=== PATIENT | female | born 2000 | race Asian ===

== ENCOUNTER 2020-12-27 16:42 | Emergency (ER) | payer BC, SELFPAY ==
[2020-12-27 17:39] VITALS: BP 104/76; PULSE 100; RESP 19; TEMP 37.1; O2SAT 97; BMI 14.1
[2020-12-27 17:42] VITALS: BP 104/76; PULSE 100; RESP 19; TEMP 37.1; O2SAT 97
[2020-12-27 18:31] LABS: MANUAL DIFF FLAG NO
[2020-12-27 18:35] LABS: Basophils Percent Auto 0.4 % (0-2); Eosinophils Percent Auto 0.2 % (0-4); Hematocrit 38.4 % (37-47); Hemoglobin 12.3 g/dl (12.0-16.0); Imm Gran Abs Auto 0.01 X10*3/uL (0.00-0.03); Imm Gran Pct Auto 0.2 % (0.0-0.4); Lymphocytes Absolute Auto 1.1 X10*3/uL (1.2-4.9); Lymphocytes Percent Auto 23.8 % (20-40); Mean Corpuscular Hemoglobin 27.2 pg (27.0-33.0); Mean Corpuscular Volume 84.8 fL (80-98); Monocytes Absolute Auto 0.4 X10*3/uL (0.1-1.2); Monocytes Percent Auto 8.2 % (2-11); Neutrophils Percent Auto 67.2 % (45-73); Platelet Count 260 X10*3/uL (160-400); Red Blood Count 4.53 X10*6/uL (4.20-5.50); Red Cell Distribution Width 12.7 % (11.0-16.0); White Blood Count 4.5 X10*3/uL (4.8-10.8)
[2020-12-27 18:44] LABS: UPreg QC Valid YES; Urine Pregnancy NEGATIVE (NEGATIVE)
[2020-12-27 19:06] LABS: Ethanol < 10 mg/dL
--- NOTE | 2020-12-27 19:06 | PC.NURSE ---
Patient in her room, calm and quiet, provider just saw her, care team consult ordered, care team called, patient will be seen shortly, will continue to monitor.
[2020-12-27 19:07] LABS: Amphetamine Screen Urine Not Detected (Not Detect); Barbiturates, Urine Not Detected (Not Detect); Benzodiazepines Screen Urine Not Detected (Not Detect); Cannabinoid Screen Urine Not Detected (Not Detect); Cocaine Screen Urine Not Detected (Not Detect); Opiate Screen Urine Not Detected (Not Detect); Phencyclidine Screen Urine Not Detected (Not Detect)
[2020-12-27 19:10] LABS: Alanine Aminotransferase 7 U/L (0-31); Albumin Level 4.4 g/dL (3.5-5.0); Alkaline Phosphatase 43 U/L (39-117); Anion Gap 11 (12-20); Aspartate Amino Transferase 14 U/L (5-31); Bilirubin Total 0.5 mg/dL (0.0-1.0); Blood Urea Nitrogen 10 mg/dL (9-16); Calcium 9.6 mg/dL (8.4-10.2); Carbon Dioxide 25 mmol/L (22-29); Chloride 107 mmol/L (96-108); Creatinine Clr Calc Pharmacy 76.9; Estimated Glomerular Filt Rate > 60; Glucose Random 88 mg/dL (60-115); Potassium 4.3 mmol/L (3.3-5.1); Sodium 139 mmol/L (135-145); Total Protein 7.3 g/dL (6.5-8.0)
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
[2020-12-27 19:55] LABS: COVID-19 Test Negative (Negative); IDNOW Serial# 9DD0AD1C
--- NOTE | 2020-12-27 21:50 | PC.NURSE ---
Care team completed the assessment, disposition is discharge in the morning after psych consult, provider and patient aware of the dispo, patient stepped out of unit with care team to make phone call to her family under care team supervision, no distress reported at this time, will continue to monitor
[2020-12-27 22:00] VITALS: BP 88/61; PULSE 70; RESP 15; TEMP 36.7; O2SAT 98
[2020-12-28 06:25] VITALS: BP 100/63; PULSE 91; RESP 15; TEMP 36.3; O2SAT 100
--- NOTE | 2020-12-28 07:10 | PC.NURSE ---
Report received from JOAQUIN Mendez. Pt resting, resp unlabored.
--- NOTE | 2020-12-28 09:19 | PC.NURSE ---
Pt seen by CARE team.
[2020-12-28 09:53] VITALS: BP 94/63; PULSE 89; RESP 20; TEMP 36.5; O2SAT 100
--- NOTE | 2020-12-28 10:08 | MHC.CARE ---
Per CARE team pass-along pt was referred to CARE for am meeting to review safety plan and check in with pt. Pt was resting comfortably when t/w arrived and she was open to supportive contact. Pt expressed that she was in agreement with the plan for her to return to school and had a plan to check in with her supports. Per assessment last night by CARE pt was provided with a comprehensive safety plan. This was reviewed at length with pt and she felt supported in this structure and added effort made by copier field service technician last night. Pt said a close friend from school offered to stay with her or she can stay with them which made her feel supported. She also preferred to have this same friend pick her up this am. T/w suggested that she use this support to also make a trip to her pharmacy as pt indicated that she had been struggling to get out to pick up attendant her meds on her own. Pt was offered further consult with Psych and she politely felt she did not need this and there was no overt sxs or report made by her or ED staff that needed to pursue this. Pt stated that she felt that the support here in her assessment and care plan was very helpfl to her and she felt safe to dc home. Pt denied suicidal thinking and was not feeling at risk of harm to herself or others. Pt was very pleased at the plan to dc and have a friend help with her transition back to campus. T/w spoke with pts therapist for 30 mins to relay safety planning and she will also be following up with pt today.
--- NOTE | 2020-12-28 10:14 | PC.NURSE ---
Pt given discharge instructions- verbalized understanding. Pt called friend for transport home. Pt denies SI, states she is safe to return to school.
== END 2020-12-28 10:20 | disposition home or self-care (01) ==
PROVIDERS: Nurse Practitioner Family; Emergency Provider Internal Medicine
DX: F33.1 Major depressive disorder, recurrent, moderate (principal); R45.851 Suicidal ideations; Z79.899 Other long term (current) drug therapy; Z20.822 Contact with and (suspected) exposure to COVID-19
CPT/HCPCS: 36415; 80053; 80307; 80320; 81025; 85025; 87635; 99285

== ENCOUNTER 2021-01-14 08:45 | Outpatient (RCR) | payer BC, SELFPAY ==
[2020-12-31 12:27] VITALS: BMI 14.3
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
--- NOTE | 2020-12-31 13:08 | P.HPPSP_ITS ---
HPI Chief Complaint: MDD Sources of Information: patient interviewed and chart reviewed HPI Narrative: The patient is a 20 year old female, from 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 The patient reported that in 2018, she was diagnosed with Bipolar Type II and she has tried several medications. She reported in the last months, she has been more depressed with depressed mood, increased sleep, lack of energy, unable to function, suicidal thoughts and recent paranoid ideas but no auditory hallucinations. She is only taking Zyprexa 2.5 mg with oversedation. She admitted that she mostly has depressive episodes but she had a full short episodes of hypo-jenny elicited by increased energy, elated mood, racing thoughts and shopping sprees. During the intake interview, she was able to contract for safety, she is willing to continue treatment. Past Psychiatric History: First psychiatric contact in 2019 outpatient with depression in [facility], treated at home with SSRI's that worsened her mood. On 2019, she was also treated outpatient with Olanzapine. She has tried Wellbutrin in the past. Medical Evaluation Reviewed: No [facility] Medical History Anemia Surgical History History of appendectomy Family History: Unknow, apparently, there is a maternal uncle with alcohol and mood disorder. Social History: The patient was [place] and [place] [facility], she is the oldest of 2 siblings, her milestones were achieved at expected age, she was raised by her parents, she was a good student and graduated from high school. She came to the for further higher education, currently living in [place] with a flat mate and attending [employer] Substance History: Denies Trauma History: Denies Diagnostics Vital Signs (24Hr): Body Mass Index 14.3 Meds/Allergies Allergies Allergies Allergy/AdvReac Type Severity Reaction Status Date / Time No Known Allergies Allergy Verified 12/27/20 17:59 Mental Status Exam Mental Status Exam Patient Appearance: Well Grooomed Patient Orientation: Person, Place, Time and Situation Level of Consciousness: Awake and Appropriate Patient Behavior: Appropriate Mood Description: Calm and Withdrawn Affect Description: Constricted and Depressed Patient Cognition Impaired: No Ability to Follow Directions: Good Speech Pattern: Clear Memory Description: Intact Hallucinations: None Delusions: Paranoid Ideation Thought Process: Goal Oriented Thought Content: positive for Intact Depressive Symptoms: Increased Anxiety, Changes in Appetite, Crying Spells, Sleeping More Than Usual, Loss of Int. in Activity, Feelings of Worthlessness, Hopelessness and Isolating-Friends/Family Judgement: Fair Assessment & Plan Assessment & Plan (1) Bipolar 2 disorder: Status: Acute Code(s): F31.81 - Bipolar II disorder Assessment and Plan: Young adult female with bipolar type 2, currently in the middle of a depressive episode with atypical symptoms of depression and neurovegetative symptoms. Plan: 1. Keep Zyprexa 2.5 mg po qhs 2. Start Wellbutrin SR 100 mg po bid. 3. F/U in 1 week Certification I certify that partial hospital treatment is medically necessary due to the symptoms and problems resulting from the patient's mental illness and the failure to treat the patient at the partial hospital level of care would likely result in the patient requiring inpatient psychiatric care which could not be prevented at a less intensive level of care. Telehealth Telehealth Location of provider rendering services: practice address Location of patient: address on file Patient Identification confirmed using: Name, : No Telehealth method: video Patient verbally consented to treatment: Yes Patient verbally consented to billing insurance company: Yes Patient informed of any privacy concerns related to visit: No Time spent with patient (mins): 45
--- NOTE | 2021-01-02 11:05 | PC.NURSE ---
The client called to say that she would not be in today because she has an appointment with her therapist.
--- NOTE | 2021-01-02 14:50 | PC.NURSE ---
Case opened in treatment team
--- NOTE | 2021-01-06 12:50 | HO.PHPPROGNO ---
Subjective Subjective Date of Service: 01/06/21 Reason For Visit: MDD Interim History: The patient reported that she couldn't started Wellbutrin SR. She is still slightly sedated with Zyprexa. Her mood remains dysphoric. Medication Compliance: No Side effects from medications: No Attending Groups: Yes Review of Systems Acute medical concerns: No Medical Review of Systems: unchanged Mental Status Exam Mental Status Exam Patient Appearance: Well Grooomed Patient Orientation: Person, Place, Time and Situation Level of Consciousness: Awake and Sedated Patient Behavior: Appropriate and Cooperative Mood Description: Calm and Withdrawn Affect Description: Calm Patient Cognition Impaired: No Ability to Follow Directions: Good Speech Pattern: Clear Memory Description: Intact Hallucinations: None Delusions: Not Present Thought Process: Goal Oriented Thought Content: positive for Intact Judgement: Fair Diagnostics Vital Signs (24Hr): Body Mass Index 14.3 Assessment & Plan Assessment & Plan (1) Bipolar 2 disorder: Status: Acute Code(s): F31.81 - Bipolar II disorder Assessment and Plan: Young female, from [facility], with bipolar type 2, highly functional at baseline. Plan: Keep same treatment. Certification I certify that partial hospital treatment is medically necessary due to the symptoms and problems resulting from the patient's mental illness and the failure to treat the patient at the partial hospital level of care would likely result in the patient requiring inpatient psychiatric care which could not be prevented at a less intensive level of care. Greater than 50% of the session was spent on counseling and/or coordination of care Discharge Plan Discharge Attending provider: Isreal Perez Medications: New bupropion HCl [Wellbutrin SR] 100 mg tablet sustained-release 12 hr 100 mg PO BID 7 Days Qty: 14 RF: 1 Discontinued bupropion HCl [Wellbutrin SR] 100 mg Tablet Sustained-Release 12 Hr See Rx Instructions .ROUTE .COMPLEX RF: 0 No Action olanzapine 2.5 mg tablet 2.5 tab PO BEDTIME RF: 0 Telehealth Telehealth Location of provider rendering services: practice address Location of patient: address on file Patient Identification confirmed using: Name, : No Telehealth method: video Patient verbally consented to treatment: Yes Patient verbally consented to billing insurance company: Yes Patient informed of any privacy concerns related to visit: No Time spent with patient (mins): 15
--- NOTE | 2021-01-09 13:13 | PC.NURSE ---
The client called to inform us that she will not be in because she has individual therapy today.
--- NOTE | 2021-01-13 13:53 | HO.PHPPROGNO ---
Subjective Subjective Date of Service: 01/13/21 Reason For Visit: MDD Interim History: The patient reported that she has been more dysphoric and tearful. She is more anxious and now that she has to move, she has to interact with other people. She also reported frequent nightmares and she was not sleeping well at all. No evidence of suicidal thoughts. Medication Compliance: Yes Side effects from medications: No Attending Groups: Yes Review of Systems Acute medical concerns: No Medical Review of Systems: unchanged Mental Status Exam Mental Status Exam Patient Appearance: Well Grooomed Patient Orientation: Person, Place, Time and Situation Level of Consciousness: Appropriate Patient Behavior: Cooperative Mood Description: Depressed Affect Description: Withdrawn Patient Cognition Impaired: No Ability to Follow Directions: Good Speech Pattern: Clear Memory Description: Intact Hallucinations: None Delusions: Not Present Thought Process: Goal Oriented Thought Content: positive for Intact Depressive Symptoms: Increased Anxiety, Difficulty Sleeping, Crying Spells and Feelings of Worthlessness Judgement: Fair Diagnostics Vital Signs (24Hr): Body Mass Index 14.3 Assessment & Plan Assessment & Plan (1) Bipolar 2 disorder: Status: Acute Code(s): F31.81 - Bipolar II disorder Assessment and Plan: Young adult female with bipolar disorder type 2 with a new onset of depression, now with nightmares. Plan: Increase Wellbutrin SR up to 150 mg po bid. Start Prazosin 2 mg po qhs. Start Vistaril 25 mg po bid PRN anxiety. F/U in 3-5 days Certification I certify that partial hospital treatment is medically necessary due to the symptoms and problems resulting from the patient's mental illness and the failure to treat the patient at the partial hospital level of care would likely result in the patient requiring inpatient psychiatric care which could not be prevented at a less intensive level of care. Greater than 50% of the session was spent on counseling and/or coordination of care Discharge Plan Discharge Attending provider: Isreal Perez Medications: New bupropion HCl [Wellbutrin SR] 150 mg tablet sustained-release 12 hr 150 mg PO BID 7 Days Qty: 14 RF: 1 prazosin 2 mg capsule 2 mg PO BEDTIME Qty: 7 RF: 1 hydroxyzine pamoate [Vistaril] 25 mg capsule 25 mg PO BID PRN (Reason: anxiety) 7 Days Qty: 14 RF: 0 Discontinued bupropion HCl [Wellbutrin SR] 100 mg Tablet Sustained-Release 12 Hr See Rx Instructions .ROUTE .COMPLEX RF: 0 No Action olanzapine 2.5 mg tablet 2.5 tab PO BEDTIME RF: 0 Telehealth Telehealth Location of provider rendering services: practice address Location of patient: address on file Patient Identification confirmed using: Name, : No Telehealth method: video Patient verbally consented to treatment: Yes Patient verbally consented to billing insurance company: Yes Patient informed of any privacy concerns related to visit: No Time spent with patient (mins): 15
--- NOTE | 2021-01-14 15:41 | PC.NURSE ---
I called teresa clients therapist Aaliyah Hewitt to inform of clients discharge from [facility]
== END 2021-01-15 08:16 | disposition home or self-care (01) ==
LOC: HO.PHPA 08:45
PROVIDERS: Visit Provider Psychiatry & Neurology Psychiatry
DX: F31.81 Bipolar II disorder (principal); Z79.899 Other long term (current) drug therapy
CPT/HCPCS: 90791; 90853